=== PATIENT | female | born 1945 | race Caucasian/White ===

== ENCOUNTER → 2016-09-08 | Outpatient (CLI) | payer OTHER | LOC: FIMAGING 11:56 | DX: Z12.31 Encounter for screening mammogram for malignant neoplasm of breast (principal) | CPT/HCPCS: G0202 ==

== ENCOUNTER → 2017-09-09 | Outpatient (CLI) | payer OTHER | LOC: FIMAGING 08:19 | PROVIDERS: ATTEND Family Medicine | DX: Z12.31 Encounter for screening mammogram for malignant neoplasm of breast (principal) ==

== ENCOUNTER → 2017-09-22 | Outpatient (CLI) | payer OTHER | LOC: FIMAGING 09:59 | PROVIDERS: ATTEND Family Medicine | DX: R92.8 Other abnormal and inconclusive findings on diagnostic imaging of breast (principal) ==

== ENCOUNTER 2017-10-01 11:34 | Emergency (ER) | payer OTHER ==
[2017-10-01] MEDS ORDERED: MAG HYDROX/AL HYDROX/SIMETH 30 ML UDCUP PO ONE (11:37)
[2017-10-01] MEDS ORDERED: LIDOCAINE 2% VISCOUS 15 ML UDCUP PO ONE (11:37)
[2017-10-01] MEDS ORDERED: HYOSCYAMINE SULFATE 0.125 MG TAB PO ONE (11:37)
--- NOTE | 2017-10-01 11:45 | CPEKG ---
Heart Rate: 84 RR Interval: 714 P-R Interval: 136 QRSD Interval: 82 QT Interval: 380 QTC Interval: 450 P Dunnell: 0 QRS Dunnell: -6 T Wave Dunnell: 33 EKG Severity - NORMAL ECG - EKG Impression: SINUS RHYTHM Electronically Signed By: Jeremy Romero 03-Oct-2017 08:06:43
--- NOTE | 2017-10-01 11:51 | EDPHY ---
HPI/HX/ROS/PE/MDM - Data Points Imaging: Discussed imaging studies w/ director call center sales Radiologist, I viewed and interpreted images myself Narrative: CHIEF COMPLAINT: Left arm numbness HPI: The patient is a 72-year-old female with no history of cardiac disease or stroke. Yesterday she noted that her left arm felt like it was partially asleep. This sensation persisted through till today and she currently feels like her left arm is slightly weaker than usual. She describes increasing heartburn over the last week which she describes as a burning sensation in the center of her chest caused by lying down at night, relieved by sitting up and by drinking fluids. She denies any current chest pain or heartburn symptoms. She denies any change in vision, headache, difficulty walking, difficulty speaking. REVIEW OF SYSTEMS: Aside from elements discussed in the HPI, a comprehensive 10-point review of systems was reviewed and is negative. 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 No history of heart attack or stroke. SOCIAL HISTORY: Denies alcohol or drug abuse. PHYSICAL EXAM: General:Patient is alert, in no acute distress. ENT: Right eye appears chronically deformed and lateral leads deviated. Neck: Normal inspection. Full range of motion. Respiratory:No respiratory distress. Breath sounds normal bilaterally. Cardiovascular: Regular rate and rhythm. Strong peripheral pulses. Normal cap refill. Abdomen:The abdomen is nontender to palpation. There are no peritoneal signs. There are normal bowel sounds. Back: Normal to inspection. No tenderness to palpation. Skin: Normal color. No rash. Warm and dry. Extremities: Normal appearance. Full range of motion. Neuro: Oriented x3. Cranial nerves intact. Normal gait. Normal speech. Mildly abnormal pronator drift on the left with some shaking type movements, possibly slightly more weak on the left arm verses right but patient able to fully move arm against resistance. (Noah Acuna) ED Course: EKG was ordered and interpreted by myself. Please see [employer] system for official reading. CTH negative for abnormality. CTA head/neck negative per Isuani for abnormality. On re-evaluation, patient continus to complain of left hand weakness. She is clearly outside of tPA window given timing and improvement in symptoms, but given age and co-morbidities, it is important to determine if this represents a true CVA. I discussed case with Dr. Bourgeois and we will send patient to the [facility] for MRI as MRI is not currently available at this location. Patient and daughter agree. If negative, I anticipate that patient can be likely discharged home. (Noah Acuna) I assumed care of this patient when she was transferred from [facility] Department to [facility] Emergency Department for an MRI scan of her brain and cervical spine. These studies were performed and reported to me by the radiologist on duty. I have reviewed the written reports of these MRIs. No acute findings that would require emergent attention. She does have degenerative disease in the cervical spine, more pronounced at C5-6. This might explain some of her left arm/hand weakness. I relayed these findings to the patient and her daughter. We discussed symptomatic treatment of cervical radiculopathy. We discussed follow-up and danger signs that should prompt her to be re-evaluated immediately. (Zhanna Bourgeois) - Data Points Imaging Results: Imaging Impressions Head CT 10/01/17 11:48 Impression: 1. Mild atrophy. 2. No acute hemorrhage, hydrocephalus, or mass effect. 3. Cerebrovascular atherosclerosis. 4. No definite acute infarct. 5. No epidural or subdural hematoma. 6. Consider MRI of the brain, if there is continued clinical concern. Findings and recommendations discussed with Emergency Department physician, Noah Acuna MD at 12:31 hour, 10/01/2017. Final report concurs with initial preliminary interpretation. Head CTA 10/01/17 12:33 Impression: 1. No carotid or vertebral dissection, flow-limiting stenosis, or occlusion. 2. No significant atherosclerotic disease. 3. Incidental right vallecula 1-cm hypodense lesion for which follow up ENT consult and direct visualization is recommended to rule out neoplasm. Measurement of carotid stenosis is based on the residual internal carotid diameter with [place] Symptomatic Carotid Endarterectomy Trial (NASCET) based stenosis levels. CT Angiogram of the Brain Clinical Indications: Possible CVA, left arm weakness. Technique: CT angiogram of the brain and neck was performed, with the uneventful intravenous administration of 85 mL Isovue-370 contrast. Multiplanar reconstructions including 3D reconstructions performed and evaluated on [employer] workstation in order to better evaluate the [place] vessels. Images were manipulated by the radiologist at the computer workstation. Dose reduction techniques were utilized. Findings: Major vessels of the [place] are adequately displayed, demonstrating no evidence of aneurysm, vascular malformation, flow-limiting stenosis, or occlusion. Bilateral cavernous internal carotid arteries and vertebrobasilar system demonstrates no evidence of flow-limiting stenosis, aneurysm, occlusion, or dissection. Superior sagittal sinus, transverse sinuses , and major veins demonstrate no evidence of intraluminal thrombi. Impression: Negative CT angiogram of the brain. Findings and recommendations discussed with Emergency Department physician, Noha Acuna M.D., at 1350 hours, on October 01, 2017. Final report concurs with initial preliminary interpretation. Neck CTA 10/01/17 12:33 Impression: 1. No carotid or vertebral dissection, flow-limiting stenosis, or occlusion. 2. No significant atherosclerotic disease. 3. Incidental right vallecula 1-cm hypodense lesion for which follow up ENT consult and direct visualization is recommended to rule out neoplasm. Measurement of carotid stenosis is based on the residual internal carotid diameter with [place] Symptomatic Carotid Endarterectomy Trial (NASCET) based stenosis levels. CT Angiogram of the Brain Clinical Indications: Possible CVA, left arm weakness. Technique: CT angiogram of the brain and neck was performed, with the uneventful intravenous administration of 85 mL Isovue-370 contrast. Multiplanar reconstructions including 3D reconstructions performed and evaluated on [employer] workstation in order to better evaluate the [place] vessels. Images were manipulated by the radiologist at the computer workstation. Dose reduction techniques were utilized. Findings: Major vessels of the [place] are adequately displayed, demonstrating no evidence of aneurysm, vascular malformation, flow-limiting stenosis, or occlusion. Bilateral cavernous internal carotid arteries and vertebrobasilar system demonstrates no evidence of flow-limiting stenosis, aneurysm, occlusion, or dissection. Superior sagittal sinus, transverse sinuses , and major veins demonstrate no evidence of intraluminal thrombi. Impression: Negative CT angiogram of the brain. Findings and recommendations discussed with Emergency Department physician, Noah Acuna M.D., at 1350 hours, on October 01, 2017. Final report concurs with initial preliminary interpretation. Brain MRI 10/01/17 13:59 Impression: 1. Small focus of susceptibility artifact within the left cerebral pedicle likely related to prior hemorrhage. 2. No features of acute intracranial hemorrhage, cortical ischemia, mass, or mass effect. 3. Mild bilateral periventricular white matter disease most compatible with microvascular ischemic gliosis. Cervical Spine MRI 10/01/17 13:59 Impression: 1. Moderate features of degenerative disk disease at C5-C6, with annular bulging diffusely and moderate bilateral neural foraminal stenosis. 2. No dominant central disk herniation identified. The cervical cord maintains normal signal intensity and thickness. Results called to Dr. Zhanna Bourgeois at 4:50 p.m. Laboratory Results: Laboratory Results 10/01/17 11:55 10/01/17 11:55 10/01/17 10/01/17 11:55 11:55 WBC 6.09 10^3/uL 10^3/uL (3.80-9.50) RBC 4.77 10^6/uL 10^6/uL (4.18-5.33) Hgb 13.6 g/dL g/dL (12.6-16.3) Hct 41.5 % % (38.0-47.0) MCV 87.0 fL fL (81.5-99.8) MCH 28.5 pg pg (27.9-34.1) MCHC 32.8 g/dL g/dL (32.4-36.7) RDW 14.1 % % (11.5-15.2) Plt Count 186 10^3/uL 10^3/uL (150-400) MPV 12.1 fL H fL (8.7-11.7) Neut % (Auto) 39.0 % L % (39.3-74.2) Lymph % (Auto) 49.1 % H % (15.0-45.0) Garrard % (Auto) 7.9 % % (4.5-13.0) Eos % (Auto) 2.5 % % (0.6-7.6) Baso % (Auto) 0.8 % % (0.3-1.7) Nucleat RBC Rel Count 0.0 % % (0.0-0.2) Absolute Neuts (auto) 2.38 10^3/uL 10^3/uL (1.70-6.50) Absolute Lymphs (auto) 2.99 10^3/uL 10^3/uL (1.00-3.00) Absolute Monos (auto) 0.48 10^3/uL 10^3/uL (0.30-0.80) Absolute Eos (auto) 0.15 10^3/uL 10^3/uL (0.03-0.40) Absolute Basos (auto) 0.05 10^3/uL 10^3/uL (0.02-0.10) Absolute Nucleated RBC 0.00 10^3/uL 10^3/uL (0-0.01) Immature Gran % 0.7 % % (0.0-1.1) Immature Gran # 0.04 10^3/uL 10^3/uL (0.00-0.10) Sodium 143 mEq/L mEq/L (135-145) Potassium 4.2 mEq/L mEq/L (3.5-5.2) Chloride 108 mEq/L mEq/L (97-110) Carbon Dioxide 25 mEq/l mEq/l (22-31) Anion Gap 10 mEq/L mEq/L (8-16) BUN 22 mg/dL mg/dL (7-23) Creatinine 0.9 mg/dL mg/dL (0.6-1.0) Estimated GFR > 60 Glucose 126 mg/dL H mg/dL (70-100) Calcium 9.5 mg/dL mg/dL (8.5-10.4) Troponin I < 0.012 ng/mL ng/mL (0.000-0.034) Medications Given: Discontinued Medications Al Hydroxide/Mg Hydroxide (Maalox Susp) 30 ml PO ONCE ONE Stop: 10/01/17 11:38 Last Admin: 10/01/17 12:17 Dose: Not Given Hyoscyamine Sulfate (Levsin, Hyomax-Sl) 0.25 mg PO ONCE ONE Stop: 10/01/17 11:38 Last Admin: 10/01/17 12:16 Dose: Not Given Lidocaine (Lidocaine 2% Viscous) 15 ml PO ONCE ONE Stop: 10/01/17 11:38 Last Admin: 10/01/17 12:17 Dose: Not Given General Time Seen by Provider: 10/01/17 11:37 Initial Vital Signs: Initial Vital Signs Temperature (C) 36.4 C 10/01/17 11:46 Heart Rate 79 10/01/17 11:46 Respiratory Rate 16 10/01/17 11:46 Blood Pressure 150/93 H 10/01/17 11:46 O2 Sat (%) 95 10/01/17 11:46 O2 Delivery Mode Room Air Allergies/Adverse Reactions: NSAIDS (Non-Steroidal Anti-Inflamma [Nsaids] Adverse Reaction (Intermediate, Verified 10/01/17 11:44) Rash Home Medications: Medication Instructions Recorded Levothyroxine 10/01/17 Preservision Softgel 10/01/17 Vitamin B12 10/01/17 Vitamin D3 10/01/17 Departure - Departure Disposition: Home, Routine, Self-Care Clinical Impression: Arm paresthesia, left Condition: Good Instructions: Additional Information, Paresthesia (ED) Additional Instructions: Follow-up with your primary care physician on Tuesday. Return to the emergency department for headache, change in vision, worsening weakness, numbness, difficulty walking or other concerns. Referrals: Hoa Dickerson MD [Primary Care Provider] - As per Instructions
[2017-10-01 12:03] LABS: PLATELET COUNT 186 10^3/uL (150-400)
[2017-10-01] MEDS ORDERED: IOPAMIDOL (ISOVUE 370) 100 ML BTL IV ONE (12:52)
[2017-10-01 14:34] VITALS: BP 142/92
== END 2017-10-01 17:24 | disposition home or self-care (01) ==
LOC: CED 11:34
DX: R20.2 Paresthesia of skin (principal)
CPT/HCPCS: 70450; 70496; 70498; 70551; 72141; 93005; 99285; Q9967; 80048-PO; 84484-PO; 85025-PO

== ENCOUNTER → 2017-10-13 | Outpatient (CLI) | payer OTHER | LOC: FIMAGING 13:49 | PROVIDERS: ATTEND Family Medicine | DX: M81.0 Age-related osteoporosis without current pathological fracture (principal); Z78.0 Asymptomatic menopausal state ==

== ENCOUNTER 2018-12-09 10:41 | Emergency (ER) | payer OTHER | END 2018-12-09 12:09 | disposition home or self-care (01) | LOC: CED 10:41 ==